=== PATIENT | female | born 1980 | race Caucasian/White ===

== ENCOUNTER 2017-03-23 01:24 | Emergency (ER) | payer OTHER ==
[~2017-03-23] VITALS: Ht 175.3 cm; Wt 72.7 kg
[2017-03-23 01:59] LABS: ADD MIUA? YES; BILIRUBIN NEGATIVE; BLOOD MODERATE; COLOR YELLOW ((YELLOW)); GLUCOSE (STRIP) NEGATIVE; KETONES NEGATIVE; LEUKOCYTES LARGE; NITRITE NEGATIVE; PROTEIN (STRIP) 30; SPECIFIC GRAVITY 1.008 (1.000-1.030); UROBILINOGEN 0.2 MG/DL (0.2-1.0)
[2017-03-23 02:00] LABS: INTERNAL CONTROL VALID? YES
[2017-03-23 02:09] LABS: BACTERIA RARE /HPF; EPITHELIAL CELLS RARE /HPF; MUCUS NONE SEEN /LPF; RED BLOOD CELLS TNTC /HPF (0-5); UCUL ADDED? YES; UNCLASSIFIED CRYSTALS 1+ /HPF; WHITE BLOOD CELLS TNTC /HPF (0-5)
[2017-03-23 03:15] VITALS: BP 114/88
== END 2017-03-23 03:15 | disposition home or self-care (01) ==
LOC: EME 01:24
PROVIDERS: Emergency Medicine
DX: N39.0 Urinary tract infection, site not specified (principal); N76.0 Acute vaginitis; Z87.440 Personal history of urinary (tract) infections; F17.200 Nicotine dependence, unspecified, uncomplicated
CPT/HCPCS: 81003; 84703; 87077; 87086; 99281; 99284